=== PATIENT | male | born 1975 | race Hispanic/Latino ===

== ENCOUNTER 2018-07-16 20:33 | Emergency (ER) | payer OTHER, MEDICAID, SELFPAY ==
[2018-07-16 20:46] VITALS: BP 123/81; PULSE 89; RESP 16; TEMP 36.6; O2SAT 98
--- NOTE | 2018-07-16 21:03 | DI.CT.S_ITS ---
PROCEDURE: CT ABDOMEN PELVIS W CON INDICATIONS: right lower quadrant pain TECHNIQUE: After the administration of intravenous contrast, 5 mm thick sections acquired from the diaphragm to the symphysis. 5 mm coronal and sagittal reformats were acquired. For radiation dose reduction, the following was used: automated exposure control, adjustment of mA and/or kV according to patient size. COMPARISON: None. FINDINGS: Image quality: Excellent. ABDOMEN: Lung bases: Lung demonstrate mild bibasilar atelectasis. Heart size is normal. Solid organs: Liver is normal in size with diffusely decreased attenuation relative to the spleen and compatible with hepatic steatosis. Gallbladder is unremarkable. Biliary system is non dilated. Pancreas enhances normally. Spleen is normal in size and enhancement. No adrenal nodules. Kidneys demonstrate normal size and enhancement, without hydronephrosis. Subcentimeter, partially exophytic left renal hypodensity is too small to accurately characterize but likely represents a renal cyst. Peritoneum and bowel: Bowel loops demonstrate normal wall thickness and caliber. No free fluid or air. The visualized appendix appears normal. Nodes and vessels: No retroperitoneal or mesenteric adenopathy by size criteria. Aorta and inferior vena cava are normal in size. Miscellaneous: No ventral hernias. PELVIS: Genitourinary: Bladder wall thickness is normal. Miscellaneous: No inguinal hernias or adenopathy. Bones: No suspicious bony lesions. No vertebral body compression fractures. IMPRESSION: 1. CT abdomen and pelvis without acute abnormalities. 2. Normal appendix. 3. Hepatic steatosis. Findings are concordant with preliminary radiology report. Dictated by: Holland Mccormack M.D. on 07/17/2018 at 8:29 Approved by: Holland Mccormack M.D. on 07/17/2018 at 8:33
[2018-07-16 21:13] LABS: Bacteria Urine None Seen; RBC Urine None Seen (0-5/HPF); WBC Urine None Seen (0-5/HPF)
[2018-07-16 21:22] LABS: Culture Indicated Urine Cult Not Indicated; Urine Comments Microscopic Normal
--- NOTE | 2018-07-16 21:26 | ED.ABDPAIN ---
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 He has been having some right lower quadrant pain ongoing starting today. He has not had any nausea or vomiting no fevers. He does admit to drinking alcohol this evening. Family states that he does drink every day. He denies any right upper quadrant pain. MD complaint: abdominal pain Onset (ago): hour(s) Pain Consistency: constant Location: RLQ Radiation: none Migration to: no migration Relieving factors: nothing Exacerbating factors: nothing Review of Systems Review of Systems GENERAL: Denies chills, fatigue, malaise, fever, sweats, travel HEENT: Denies sinus pain, ear pain, sore throat, difficulty swallowing, neck pain RESPIRATORY: Denies dyspnea, cough, wheezing, hemoptysis, sputum. CARDIOVASCULAR: Denies chest pain, palpitations, orthopnea, edema GASTROINTESTINAL: See HPI : Denies dysuria, frequency, incontinence, hematuria, urinary retention, flank pain. MUSCULOSKELETAL: Denies weakness, joint pain, or bony pain SKIN: No rash, no erythema, no pruritus NEUROLOGIC: Denies weakness, dizziness, headache, numbness, change in speech, confusion PSYCHIATRIC: No concerning psychosocial issues. 12 point review of systems is negative except for those stated above and HPI [facility] Medical History Patient denies significant medical history (Acute) Social History (Updated 07/17/18 @ 01:12 by Doris Thomas DO) Smoking Status: Unknown if ever smoked alcohol intake: current Social History Smoking Status: Unknown if ever smoked alcohol intake: current Exam Initial Vital Signs Initial Vital Signs: Vital Signs Temperature 97.9 F 07/16/18 20:46 Pulse Rate 89 07/16/18 20:46 Respiratory Rate 16 07/16/18 20:46 Blood Pressure 123/81 07/16/18 20:46 Pulse Oximetry 98 07/16/18 20:46 GENERAL: Alert well-appearing female no acute distress able to communicate HEENT: Head atraumatic,EOMI, pupils reactive, face symmetric, moist mucous membranes CARDIOVASCULAR: Regular rate and rhythm without murmurs, rubs or gallops. RESPIRATORY: Breath sounds equal bilaterally, no wheezes rales or rhonchi. ABDOMEN: Soft, tender in right lower quadrant no guarding no rebound no right upper quadrant pain negative Hand sign : No CVA tenderness EXTREMITIES: Normal range of motion, no clubbing or edema. Neurovascularly intact NEUROLOGICAL: Alert and oriented x4.Normal gait and speech. Cranial nerves II through XII grossly intact. SKIN: Warm, dry, no laceration, no petechiae, no rashes or lesions. Course Orders Ordered: ED Orders 07/16/18 21:00 Urine Microscopic Stat 07/16/18 21:03 CT abdomen pelvis w con Stat 07/16/18 21:20 Complete Blood Count AUTO DIFF Stat Comprehensive Metabolic Panel Stat Lipase Stat Discontinued Medications Sodium Chloride (Normal Saline 0.9%) 1,000 mls @ 150 mls/hr IV CONT HUDSON Last Infusion: 07/16/18 23:03 Dose: 0 mls/hr Admin: 07/16/18 21:35 Dose: 150 mls/hr Ketorolac Tromethamine (Toradol) 30 mg IV NOW ONE Stop: 07/16/18 21:04 Last Admin: 07/16/18 21:34 Dose: 30 mg Vital Signs - 8 hr 07/16/18 20:46 07/16/18 22:18 Temperature 97.9 F Pulse Rate 89 75 Respiratory Rate 16 17 Blood Pressure [Left Arm] 123/81 111/70 Pulse Oximetry 98 98 MDM - Abdominal Pain Lab Data Attestation: I reviewed the patient's lab results. Result diagrams: 07/16/18 21:20 07/16/18 21:20 Lab Results 07/16/18 07/16/18 07/16/18 Range/Units 21:00 21:20 21:20 WBC 6.3 (4.5-11.0) X10^3/uL RBC 5.28 (4.5-5.9) X10^6/uL Hgb 16.3 (13.5-17.5) g/dL Hct 48.9 (41-53) % MCV 92.6 (80-100) fL MCH 31.0 (26-34) PG MCHC 33.4 (30-36) % RDW 13.8 (11.6-14.8) % Plt Count 169 (150-400) X10^3/uL Neut % (Auto) 41.7 L (50-75) % Lymph % (Auto) 47.3 H (25-40) % [place] % (Auto) 7.5 (3-14) % Eos % (Auto) 2.9 (2-4) % Baso % (Auto) 0.6 (0-2) % Neut # (Auto) 2600 (3576-2498) /uL Lymph # (Auto) 3000 (7008-0225) /uL [place] # (Auto) 500 (0-900) /uL Eos # (Auto) 200 (0-450) /uL Baso # (Auto) 0 (0-100) /uL Sodium 143 (137-145) mmol/L Potassium 3.9 (3.4-5.1) mmol/L Chloride 107 (98-107) mmol/L Carbon Dioxide 22 (22-32) mmol/L BUN 13 (9-20) mg/dL Creatinine 1.10 (0.66-1.25) mg/dL Estimated GFR > 60.0 (>60) mL/min BUN/Creatinine Ratio 11.8 (6-22) Glucose 103 H (70-100) mg/dL Calcium 8.9 (8.4-10.2) mg/dL Total Bilirubin 0.3 (0.2-1.3) mg/dL AST 97 H (17-59) IU/L ALT 158 H (21-72) IU/L Alkaline Phosphatase 161 H (38-126) U/L Total Protein 8.3 H (6.3-8.2) g/dL Albumin 4.8 (3.5-5.0) g/dL Globulin 3.5 (1.7-4.1) g/dL Albumin/Globulin Ratio 1.4 (1.0-2.8) Lipase 124 (23-300) U/L Urine RBC None seen (0-5/HPF) Urine WBC None seen (0-5/HPF) Urine Bacteria None seen (None) Ur Culture Indicated? 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 No diverticulitis or bowel obstructions. Fatty infiltration of the liver. Gallbladder is unremarkable. No hydronephrosis. Spleen and pancreas are unremarkable. No abdominal aortic aneurysm. Mild gastric wall thickening may relate to incomplete distention. MDM Narrative Medical decision making narrative: Patient receive 1 dose of Toradol overall feeling better. Again abdomen is reassessed of remains soft minimal tenderness in right lower quadrant no right upper quadrant tenderness. He is noted to have some elevated liver enzymes which I told family about this is likely related to his drinking and fatty liver. Recommend repeating these. Discharge Plan Departure Patient Disposition: Home Clinical Impression: Elevated liver enzymes Abdominal pain Qualifiers: Abdominal location: right lower quadrant Qualified Code(s): R10.31 - Right lower quadrant pain Discharge Date/Time: 07/16/18 23:05 Interventions: ED Discharge Assessment Last Done: 07/16/18 23:04 Instructions: DI for Abdominal Pain-Adult Activity Restrictions/Additional Instructions: *You have been diagnosed with right lower quadrant, elevated liver enzymes *What to do: No appendicitis. Liver enzymes are slightly elevated probably due from alcohol. Recommend repeating blood work a has 3-5 days *Continue to take medications as directed -Motrin 400mg every 8 hours if needed for pain *Follow up with your primary care provider in 2-3 may call [phone] for a new physician *Return to ER if you should have increased abdominal pain, persistent vomiting or any new, worsening or concerning symptoms
[2018-07-16 21:28] LABS: Add Manual Diff / Slide Review NO; Basophils Absolute Auto 0 /uL (0-100); Basophils Percent Auto 0.6 % (0-2); Eosinophils Absolute Auto 200 /uL (0-450); Eosinophils Percent Auto 2.9 % (2-4); Hematocrit 48.9 % (41-53); Hemoglobin 16.3 g/dL (13.5-17.5); Lymphocytes Absolute Auto 3000 /uL (1100-4500); Lymphocytes Percent Auto 47.3 % (25-40); Mean Corpuscular HGB Conc 33.4 % (30-36); Mean Corpuscular Volume 92.6 fL (80-100); Monocytes Absolute Auto 500 /uL (0-900); Monocytes Percent Auto 7.5 % (3-14); Neutrophils Absolute Auto 2600 /uL (1500-7000); Neutrophils Percent Auto 41.7 % (50-75); Platelet Count 169 X10^3/uL (150-400); Red Blood Cell Count 5.28 X10^6/uL (4.5-5.9); Red Cell Distribution Width 13.8 % (11.6-14.8); White Blood Cell Count 6.3 X10^3/uL (4.5-11.0)
[2018-07-16] MEDS: KETOROLAC 60 MG/2 ML VIAL 30 MG IV (21:34)
[2018-07-16] MEDS: SODIUM CHLORIDE 0.9% 1,000 ML 150 ML IV (21:35)
[2018-07-16 21:39] LABS: Alanine Aminotransferase 158 IU/L (21-72); Albumin 4.8 g/dL (3.5-5.0); Albumin Globulin Ratio 1.4 (1.0-2.8); Alkaline Phosphatase 161 U/L (38-126); Aspartate Aminotransferase 97 IU/L (17-59); BUN Creatinine Ratio 11.8 (6-22); Bilirubin Total 0.3 mg/dL (0.2-1.3); Blood Urea Nitrogen 13 mg/dL (9-20); Calcium 8.9 mg/dL (8.4-10.2); Carbon Dioxide 22 mmol/L (22-32); Chloride 107 mmol/L (98-107); Estimated Glomerular Filt Rate > 60.0 mL/min (>60); Globulin 3.5 g/dL (1.7-4.1); Glucose 103 mg/dL (70-100); HEMOLYSIS < 15 (0-50); Lipase 124 U/L (23-300); Potassium 3.9 mmol/L (3.4-5.1); Sodium 143 mmol/L (137-145); Total Protein 8.3 g/dL (6.3-8.2)
[2018-07-16 22:18] VITALS: BP 111/70; PULSE 75; RESP 17; O2SAT 98
--- NOTE | 2018-07-17 01:10 | ED_ITS ---
HPI - Abdominal Pain General Chief Complaint: Abdominal Pain Stated Complaint: ABD Pain Time Seen by Provider: 07/16/18 20:48 Source: patient, family and EMS Limitations: language barrier (Icelandic-speaking and deaf does not signed in French sign language) History of Present Illness HPI narrative: Patient has relatives at bedside to help translate. He has been having some right lower quadrant pain ongoing starting today. He has not had any nausea or vomiting no fevers. He does admit to drinking alcohol this evening. Family states that he does drink every day. He denies any right upper quadrant pain. MD complaint: abdominal pain Onset (ago): hour(s) Pain Consistency: constant Location: RLQ Radiation: none Migration to: no migration Relieving factors: nothing Exacerbating factors: nothing Review of Systems Review of Systems GENERAL: Denies chills, fatigue, malaise, fever, sweats, travel HEENT: Denies sinus pain, ear pain, sore throat, difficulty swallowing, neck pain RESPIRATORY: Denies dyspnea, cough, wheezing, hemoptysis, sputum. CARDIOVASCULAR: Denies chest pain, palpitations, orthopnea, edema GASTROINTESTINAL: See HPI : Denies dysuria, frequency, incontinence, hematuria, urinary retention, flank pain. MUSCULOSKELETAL: Denies weakness, joint pain, or bony pain SKIN: No rash, no erythema, no pruritus NEUROLOGIC: Denies weakness, dizziness, headache, numbness, change in speech, confusion PSYCHIATRIC: No concerning psychosocial issues. 12 point review of systems is negative except for those stated above and HPI [facility] Medical History Patient denies significant medical history (Acute) Social History (Updated 07/17/18 @ 01:12 by Doris Thomas DO) Smoking Status: Unknown if ever smoked alcohol intake: current Social History Smoking Status: Unknown if ever smoked alcohol intake: current Exam Initial Vital Signs Initial Vital Signs: Vital Signs Temperature 97.9 F 07/16/18 20:46 Pulse Rate 89 07/16/18 20:46 Respiratory Rate 16 07/16/18 20:46 Blood Pressure 123/81 07/16/18 20:46 Pulse Oximetry 98 07/16/18 20:46 GENERAL: Alert well-appearing female no acute distress able to communicate HEENT: Head atraumatic,EOMI, pupils reactive, face symmetric, moist mucous membranes CARDIOVASCULAR: Regular rate and rhythm without murmurs, rubs or gallops. RESPIRATORY: Breath sounds equal bilaterally, no wheezes rales or rhonchi. ABDOMEN: Soft, tender in right lower quadrant no guarding no rebound no right upper quadrant pain negative Hand sign : No CVA tenderness EXTREMITIES: Normal range of motion, no clubbing or edema. Neurovascularly intact NEUROLOGICAL: Alert and oriented x4.Normal gait and speech. Cranial nerves II through XII grossly intact. SKIN: Warm, dry, no laceration, no petechiae, no rashes or lesions. Course Orders Ordered: ED Orders 07/16/18 21:00 Urine Microscopic Stat 07/16/18 21:03 CT abdomen pelvis w con Stat 07/16/18 21:20 Complete Blood Count AUTO DIFF Stat Comprehensive Metabolic Panel Stat Lipase Stat Discontinued Medications Sodium Chloride (Normal Saline 0.9%) 1,000 mls @ 150 mls/hr IV CONT HUDSON Last Infusion: 07/16/18 23:03 Dose: 0 mls/hr Admin: 07/16/18 21:35 Dose: 150 mls/hr Ketorolac Tromethamine (Toradol) 30 mg IV NOW ONE Stop: 07/16/18 21:04 Last Admin: 07/16/18 21:34 Dose: 30 mg Vital Signs - 8 hr 07/16/18 20:46 07/16/18 22:18 Temperature 97.9 F Pulse Rate 89 75 Respiratory Rate 16 17 Blood Pressure [Left Arm] 123/81 111/70 Pulse Oximetry 98 98 MDM - Abdominal Pain Lab Data Attestation: I reviewed the patient's lab results. Result diagrams: 07/16/18 21:20 07/16/18 21:20 Lab Results 07/16/18 07/16/18 07/16/18 Range/Units 21:00 21:20 21:20 WBC 6.3 (4.5-11.0) X10^3/uL RBC 5.28 (4.5-5.9) X10^6/uL Hgb 16.3 (13.5-17.5) g/dL Hct 48.9 (41-53) % MCV 92.6 (80-100) fL MCH 31.0 (26-34) PG MCHC 33.4 (30-36) % RDW 13.8 (11.6-14.8) % Plt Count 169 (150-400) X10^3/uL Neut % (Auto) 41.7 L (50-75) % Lymph % (Auto) 47.3 H (25-40) % [place] % (Auto) 7.5 (3-14) % Eos % (Auto) 2.9 (2-4) % Baso % (Auto) 0.6 (0-2) % Neut # (Auto) 2600 (1284-4675) /uL Lymph # (Auto) 3000 (7417-2678) /uL [place] # (Auto) 500 (0-900) /uL Eos # (Auto) 200 (0-450) /uL Baso # (Auto) 0 (0-100) /uL Sodium 143 (137-145) mmol/L Potassium 3.9 (3.4-5.1) mmol/L Chloride 107 (98-107) mmol/L Carbon Dioxide 22 (22-32) mmol/L BUN 13 (9-20) mg/dL Creatinine 1.10 (0.66-1.25) mg/dL Estimated GFR > 60.0 (>60) mL/min BUN/Creatinine Ratio 11.8 (6-22) Glucose 103 H (70-100) mg/dL Calcium 8.9 (8.4-10.2) mg/dL Total Bilirubin 0.3 (0.2-1.3) mg/dL AST 97 H (17-59) IU/L ALT 158 H (21-72) IU/L Alkaline Phosphatase 161 H (38-126) U/L Total Protein 8.3 H (6.3-8.2) g/dL Albumin 4.8 (3.5-5.0) g/dL Globulin 3.5 (1.7-4.1) g/dL Albumin/Globulin Ratio 1.4 (1.0-2.8) Lipase 124 (23-300) U/L Urine RBC None seen (0-5/HPF) Urine WBC None seen (0-5/HPF) Urine Bacteria None seen (None) Ur Culture Indicated? 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 No diverticulitis or bowel obstructions. Fatty infiltration of the liver. Gallbladder is unremarkable. No hydronephrosis. Spleen and pancreas are unremarkable. No abdominal aortic aneurysm. Mild gastric wall thickening may relate to incomplete distention. MDM Narrative Medical decision making narrative: Patient receive 1 dose of Toradol overall feeling better. Again abdomen is reassessed of remains soft minimal tenderness in right lower quadrant no right upper quadrant tenderness. He is noted to have some elevated liver enzymes which I told family about this is likely related to his drinking and fatty liver. Recommend repeating these. Discharge Plan Departure Patient Disposition: Home Clinical Impression: Elevated liver enzymes Abdominal pain Qualifiers: Abdominal location: right lower quadrant Qualified Code(s): R10.31 - Right lower quadrant pain Discharge Date/Time: 07/16/18 23:05 Interventions: ED Discharge Assessment Last Done: 07/16/18 23:04 Instructions: DI for Abdominal Pain-Adult Activity Restrictions/Additional Instructions: *You have been diagnosed with right lower quadrant, elevated liver enzymes *What to do: No appendicitis. Liver enzymes are slightly elevated probably due from alcohol. Recommend repeating blood work a has 3-5 days *Continue to take medications as directed -Motrin 400mg every 8 hours if needed for pain *Follow up with your primary care provider in 2-3 may call [phone] for a new physician *Return to ER if you should have increased abdominal pain, persistent vomiting or any new, worsening or concerning symptoms
== END 2018-07-16 23:05 | disposition home or self-care (01) ==
PROVIDERS: Emergency Provider Emergency Medicine
DX: R10.31 Right lower quadrant pain (principal)
CPT/HCPCS: 36591; 74177; 80053; 81003; 81015; 83690; 85025; 96361; 96374; 99283; 99284; J1885